=== PATIENT | female | born 1945 | race Caucasian/White ===

== ENCOUNTER 2024-01-17 11:14 | Emergency (ER) | payer MEDICARE ==
[2024-01-17 12:31] LABS: BASOPHILS PERCENT AUTO 0.2 % (0.1-1.3); EOSINOPHILS ABSOLUTE AUTO 0.03 K/uL (0.00-0.40); EOSINOPHILS PERCENT AUTO 0.6 % (0.0-5.4); HEMATOCRIT 31.6 % (34.3-46.0); HEMOGLOBIN 10.6 g/dL (11.2-15.5); IMMATURE GRAN PERCENT AUTO 0.2 % (0.0-0.7); LYMPHOCYTES PERCENT AUTO 9.5 % (11.4-47.7); MEAN CORPUSCULAR HEMOGLOBIN 35.9 pg (31.6-35.5); MEAN CORPUSCULAR HGB CONC 33.5 g/dL (31.6-35.5); MEAN CORPUSCULAR VOLUME 107.1 fL (81.4-99.0); MONOCYTES ABSOLUTE AUTO 0.36 K/uL (0.20-0.90); MONOCYTES PERCENT AUTO 6.9 % (3.3-12.6); NEUTROPHILS ABSOLUTE AUTO 4.33 K/uL (1.0-7.6); NEUTROPHILS PERCENT AUTO 82.6 % (40.0-78.1); PLATELET COUNT,PLT 160 K/uL (130-375); RED BLOOD CELL COUNT 2.95 M/uL (3.77-5.24); WHITE BLOOD CELL COUNT,WBC 5.2 K/uL (3.2-11.0)
[2024-01-17 12:32] LABS: BASOPHILS ABSOLUTE AUTO 0.01 K/uL (0.00-0.10); IMMATURE GRAN ABSOLUTE AUTO 0.01 K/uL (0.00-0.23)
[2024-01-17 12:51] LABS: A/G RATIO 0.7 (1.2-2.2); ALANINE AMINOTRANSFERASE,ALT 12 U/L (12-78); ALBUMIN 2.8 g/dL (3.4-5.0); ALKALINE PHOSPHATASE 100 U/L (46-116); ASPARTATE AMNIOTRANSFERASE,AST 15 U/L (15-37); BILIRUBIN TOTAL 0.4 mg/dL (0.2-1.0); BLOOD UREA NITROGEN,BUN 8 mg/dL (7-18); CALCIUM 8.4 mg/dL (8.5-10.1); CARBON DIOXIDE,CO2 30 mmol/L (21-32); CHLORIDE,CL 98 mmol/L (100-108); CREATININE 0.5 mg/dL (0.6-1.0); EST CRCL DRUG DOSING (CG) 63.37 mL/min; ESTIMATED GFR 95 mL/min (>60); GLUCOSE RANDOM 91 mg/dL (74-106); POTASSIUM,K 4.2 mmol/L (3.6-5.2); PROTEIN TOTAL,TP 6.8 g/dL (6.4-8.2); SODIUM,NA 134 mmol/L (140-148)
[2024-01-17 12:52] LABS: ANION GAP 10.2 mmol/L (5.0-14.0)
[2024-01-17 13:01] LABS: RETICULOCYTE COUNT PERCENT 1.5 % (0.53-2.48)
[2024-01-17 13:12] VITALS: BP 128/80; PULSE 66
[2024-01-17 13:33] LABS: BILIRUBIN,URINE NEGATIVE (NEGATIVE); COLOR,URINE YELLOW (YELLOW); GLUCOSE,URINE NEGATIVE (NEGATIVE); KETONES,URINE TRACE mg/dL (NEGATIVE); LEUKOCYTE ESTERASE,URINE SMALL (NEGATIVE); NITRITE,URINE NEGATIVE (NEGATIVE); OCCULT BLOOD,URINE SMALL (NEGATIVE); PH,URINE 6.5 (5.0-8.0); PROTEIN,URINE NEGATIVE (NEGATIVE)
[2024-01-17 13:39] LABS: AMORPHOUS SEDIMENT,URINE NOT SEEN; APPEARANCE,URINE SLIGHTLY CLOUDY (CLEAR); BACTERIA,URINE FEW; EPITHELIAL CELLS,URINE RARE; MUCUS,URINE NOT SEEN
== END 2024-01-17 14:36 | disposition home or self-care (01) ==
LOC: JP.ED 11:14
DX: D53.9 Nutritional anemia, unspecified (principal); J44.9 Chronic obstructive pulmonary disease, unspecified; F17.210 Nicotine dependence, cigarettes, uncomplicated; Z88.2 Allergy status to sulfonamides; Z88.1 Allergy status to other antibiotic agents; Z79.899 Other long term (current) drug therapy
CPT/HCPCS: 36415; 80053; 81001; 82272; 85025; 85045; 87086; 99284

== ENCOUNTER 2024-03-03 05:46 | Emergency (ER) | payer MEDICARE ==
[2024-03-03 06:41] LABS: BASOPHILS PERCENT AUTO 0.3 % (0.1-1.3); EOSINOPHILS ABSOLUTE AUTO 0.03 K/uL (0.00-0.40); EOSINOPHILS PERCENT AUTO 0.8 % (0.0-5.4); HEMATOCRIT 28.7 % (34.3-46.0); HEMOGLOBIN 9.8 g/dL (11.2-15.5); IMMATURE GRAN PERCENT AUTO 0.3 % (0.0-0.7); LYMPHOCYTES ABSOLUTE AUTO 0.52 K/uL (0.8-3.3); LYMPHOCYTES PERCENT AUTO 13.1 % (11.4-47.7); MEAN CORPUSCULAR HEMOGLOBIN 36.7 pg (31.6-35.5); MEAN CORPUSCULAR HGB CONC 34.1 g/dL (31.6-35.5); MEAN CORPUSCULAR VOLUME 107.5 fL (81.4-99.0); MONOCYTES ABSOLUTE AUTO 0.32 K/uL (0.20-0.90); MONOCYTES PERCENT AUTO 8.1 % (3.3-12.6); NEUTROPHILS ABSOLUTE AUTO 3.08 K/uL (1.0-7.6); NEUTROPHILS PERCENT AUTO 77.4 % (40.0-78.1); PLATELET COUNT,PLT 129 K/uL (130-375); RED BLOOD CELL COUNT 2.67 M/uL (3.77-5.24)
[2024-03-03 06:42] LABS: BASOPHILS ABSOLUTE AUTO 0.01 K/uL (0.00-0.10); IMMATURE GRAN ABSOLUTE AUTO 0.01 K/uL (0.00-0.23)
[2024-03-03 07:02] LABS: A/G RATIO 0.7 (1.2-2.2); ALANINE AMINOTRANSFERASE,ALT 8 U/L (12-78); ALBUMIN 2.8 g/dL (3.4-5.0); ALKALINE PHOSPHATASE 95 U/L (46-116); ASPARTATE AMNIOTRANSFERASE,AST 14 U/L (15-37); BILIRUBIN TOTAL 0.4 mg/dL (0.2-1.0); BLOOD UREA NITROGEN,BUN 6 mg/dL (7-18); C-REACTIVE PROTEIN 0.62 mg/dL (<0.50); CALCIUM 7.9 mg/dL (8.5-10.1); CARBON DIOXIDE,CO2 30 mmol/L (21-32); CHLORIDE,CL 98 mmol/L (100-108); CREATININE 0.5 mg/dL (0.6-1.0); ESTIMATED GFR 95 mL/min (>60); GLUCOSE RANDOM 105 mg/dL (74-106); POTASSIUM,K 4.2 mmol/L (3.6-5.2); PROTEIN TOTAL,TP 6.6 g/dL (6.4-8.2); SODIUM,NA 133 mmol/L (140-148)
[2024-03-03 07:03] LABS: ANION GAP 9.2 mmol/L (5.0-14.0)
[2024-03-03 07:07] LABS: LACTIC ACID 1.3 mmol/L (0.4-2.0)
[2024-03-03] MEDS: Sodium Chloride 0.9% 80 ML IV SCH (07:13)
[2024-03-03] MEDS: Iopamidol 612 MG/ML 100 ML Bottle IV ONE (07:13)
[2024-03-03] MEDS: Sodium Chloride 0.9% 1,000 ML IV SCH (08:51)
[2024-03-03] MEDS: Iopamidol 755 Mg/ML 100 ML Bottle IV SCH (09:12)
[2024-03-03] MEDS: Sodium Chloride 0.9% 100 ML IV SCH (09:12)
[2024-03-03 09:17] VITALS: BP 126/72; PULSE 71
[2024-03-03 10:04] LABS: FOLIC ACID 1.8 ng/ml (8.6-58.9)
[2024-03-03 10:29] LABS: APPEARANCE,URINE CLEAR (CLEAR); BILIRUBIN,URINE NEGATIVE (NEGATIVE); COLOR,URINE YELLOW (YELLOW); GLUCOSE,URINE NEGATIVE (NEGATIVE); KETONES,URINE NEGATIVE (NEGATIVE); LEUKOCYTE ESTERASE,URINE NEGATIVE (NEGATIVE); NITRITE,URINE NEGATIVE (NEGATIVE); OCCULT BLOOD,URINE NEGATIVE (NEGATIVE); PH,URINE 7.5 (5.0-8.0); PROTEIN,URINE NEGATIVE (NEGATIVE); UROBILINOGEN,URINE 0.2 EU/dL (0.2-1.0)
[2024-03-03 10:44] LABS: AMORPHOUS SEDIMENT,URINE NOT SEEN; BACTERIA,URINE RARE; EPITHELIAL CELLS,URINE RARE; MUCUS,URINE NOT SEEN; RBC,URINE NOT SEEN (0-5); WBC,URINE NOT SEEN (0-5)
== END 2024-03-03 11:30 | disposition home or self-care (01) ==
LOC: JP.ED 05:46
DX: K62.5 Hemorrhage of anus and rectum (principal); D53.9 Nutritional anemia, unspecified; D51.9 Vitamin B12 deficiency anemia, unspecified; D52.9 Folate deficiency anemia, unspecified; R41.0 Disorientation, unspecified; F17.210 Nicotine dependence, cigarettes, uncomplicated; Z88.2 Allergy status to sulfonamides; Z88.8 Allergy status to other drugs, medicaments and biological substances; Z79.899 Other long term (current) drug therapy
CPT/HCPCS: 36415; 71275; 74177; 80053; 81001; 82607; 82746; 83605; 83690; 85025; 86140; 96360; 96361; 99284; J7030; Q9967

== ENCOUNTER 2024-03-13 12:34 | Emergency (ER) | payer MEDICARE ==
[2024-03-13 13:04] VITALS: BP 110/56; PULSE 69
== END 2024-03-13 13:06 | disposition left against medical advice (07) ==
LOC: JP.ED 12:34
DX: Z53.21 Procedure and treatment not carried out due to patient leaving prior to being seen by health care provider (principal)

== ENCOUNTER 2024-03-14 10:19 | Inpatient (IN) | payer MEDICARE ==
[2024-03-14 11:21] LABS: BASE EXCESS ARTERIAL 4.9 mm/L; BICARBONATE,ARTERIAL 30.3 mmol/L (22.0-26.0); CARBOXYHEMOGLOBIN 1.3 % (0.0-1.6); METHEMOGLOBIN 1.3 %; O2 SATURATION ARTERIAL 95.7 % (95.0-98.0); OXYHEMOGLOBIN 93.2 %; PCO2 ARTERIAL 51.7 mmHg (35.0-42.0); PO2 ARTERIAL 81.5 mmHg (75.0-100.0); TOTAL HEMOGLOBIN 9.8 g/dL (12.0-16.0)
[2024-03-14] MEDS: Albuterol/Ipratropium 3.0-0.5 MG/3 ML Neb Soln NEB ONE (11:27)
[2024-03-14] MEDS: methylPREDNISolone Sodium Succinate 125 MG/2 ML SDV IVPUSH ONE (11:27)
[2024-03-14 11:31] LABS: EOSINOPHILS PERCENT AUTO 0.2 % (0.0-5.4); HEMATOCRIT 27.8 % (34.3-46.0); HEMOGLOBIN 9.5 g/dL (11.2-15.5); IMMATURE GRAN ABSOLUTE AUTO 0.04 K/uL (0.00-0.23); IMMATURE GRAN PERCENT AUTO 0.8 % (0.0-0.7); LYMPHOCYTES ABSOLUTE AUTO 0.36 K/uL (0.8-3.3); LYMPHOCYTES PERCENT AUTO 7.4 % (11.4-47.7); MEAN CORPUSCULAR HEMOGLOBIN 36.5 pg (31.6-35.5); MEAN CORPUSCULAR HGB CONC 34.2 g/dL (31.6-35.5); MEAN CORPUSCULAR VOLUME 106.9 fL (81.4-99.0); MONOCYTES ABSOLUTE AUTO 0.49 K/uL (0.20-0.90); MONOCYTES PERCENT AUTO 10.1 % (3.3-12.6); NEUTROPHILS ABSOLUTE AUTO 3.97 K/uL (1.0-7.6); NEUTROPHILS PERCENT AUTO 81.5 % (40.0-78.1); PLATELET COUNT,PLT 137 K/uL (130-375); WHITE BLOOD CELL COUNT,WBC 4.9 K/uL (3.2-11.0)
[2024-03-14 11:40] LABS: EOSINOPHILS ABSOLUTE AUTO 0.01 K/uL (0.00-0.40)
[2024-03-14 11:53] LABS: A/G RATIO 0.6 (1.2-2.2); ALANINE AMINOTRANSFERASE,ALT 12 U/L (12-78); ALBUMIN 2.4 g/dL (3.4-5.0); ALKALINE PHOSPHATASE 69 U/L (46-116); ANION GAP 7.2 mmol/L (5.0-14.0); ASPARTATE AMNIOTRANSFERASE,AST 34 U/L (15-37); BILIRUBIN TOTAL 0.4 mg/dL (0.2-1.0); BLOOD UREA NITROGEN,BUN 16 mg/dL (7-18); CALCIUM 7.7 mg/dL (8.5-10.1); CARBON DIOXIDE,CO2 33 mmol/L (21-32); CHLORIDE,CL 95 mmol/L (100-108); CREATININE 0.6 mg/dL (0.6-1.0); EST CRCL DRUG DOSING (CG) 41.91 mL/min; ESTIMATED GFR 91 mL/min (>60); GLUCOSE RANDOM 107 mg/dL (74-106); POTASSIUM,K 4.2 mmol/L (3.6-5.2); PROTEIN TOTAL,TP 6.4 g/dL (6.4-8.2); SODIUM,NA 131 mmol/L (140-148)
[2024-03-14] MEDS: Sodium Chloride 0.9% 500 ML IV ONE (12:56)
[2024-03-14] MEDS: Doxycycline 100 MG in Sodium Chloride 0.9% 100 ML IV ONE (12:56)
[2024-03-14] MEDS: Albuterol 0.083% 2.5 MG/3 ML Neb Soln NEB ONE (12:57)
[2024-03-14] MEDS ORDERED: Acetaminophen 325 MG Tab PO PRN (15:23)
[2024-03-14] MEDS ORDERED: Sodium Chloride 0.9% 10 ML Syringe FLUSH PRN (15:23)
[2024-03-14] MEDS ORDERED: Ondansetron 4 MG/2 ML SDV IV PRN (15:23)
[2024-03-14] MEDS ORDERED: Albuterol 0.083% 2.5 MG/3 ML Neb Soln NEB PRN (15:23)
[2024-03-14] MEDS: Enoxaparin 40 MG/0.4 ML Syringe SUBCUT SCH (16:19)
[2024-03-14] MEDS: Dexamethasone 4 MG/ML SDV IVPUSH SCH (16:19)
[2024-03-14] MEDS: cefTRIAXone 1 GM in Sodium Chloride 0.9% 50 ML IV SCH (16:20)
[2024-03-14] MEDS: Albuterol/Ipratropium 3.0-0.5 MG/3 ML Neb Soln NEB SCH (16:20)
[2024-03-14] MEDS ORDERED: Nicotine Polacrilex 2 MG Gum CHEW PRN (16:46)
[2024-03-14] MEDS: REMDESIVIR 200 MG in Sodium Chloride 0.9% 250 ML IV ONE (17:06)
[2024-03-14] MEDS: Nicotine 21 MG/24 Hr Patch TRDERM SCH (18:49)
[2024-03-14] MEDS: Melatonin 3 MG Tab PO SCH (20:41)
[2024-03-14] MEDS ORDERED: Albuterol 6.7 GM Inhaler INH PRN (20:59)
[2024-03-14] MEDS: Doxycycline 100 MG in Sodium Chloride 0.9% 100 ML IV SCH (23:11)
[2024-03-15 05:54] LABS: HEMATOCRIT 26.5 % (34.3-46.0); HEMOGLOBIN 9.1 g/dL (11.2-15.5); MEAN CORPUSCULAR HEMOGLOBIN 36.5 pg (31.6-35.5); MEAN CORPUSCULAR HGB CONC 34.3 g/dL (31.6-35.5); MEAN CORPUSCULAR VOLUME 106.4 fL (81.4-99.0); RED BLOOD CELL COUNT 2.49 M/uL (3.77-5.24); WHITE BLOOD CELL COUNT,WBC 2.8 K/uL (3.2-11.0)
[2024-03-15 06:15] LABS: A/G RATIO 0.6 (1.2-2.2); ALANINE AMINOTRANSFERASE,ALT 10 U/L (12-78); ALBUMIN 2.3 g/dL (3.4-5.0); ALKALINE PHOSPHATASE 66 U/L (46-116); ANION GAP 12.4 mmol/L (5.0-14.0); ASPARTATE AMNIOTRANSFERASE,AST 25 U/L (15-37); BILIRUBIN TOTAL 0.3 mg/dL (0.2-1.0); BLOOD UREA NITROGEN,BUN 22 mg/dL (7-18); CARBON DIOXIDE,CO2 29 mmol/L (21-32); CHLORIDE,CL 95 mmol/L (100-108); CREATININE 0.6 mg/dL (0.6-1.0); EST CRCL DRUG DOSING (CG) 45.25 mL/min; ESTIMATED GFR 91 mL/min (>60); GLUCOSE RANDOM 135 mg/dL (74-106); MAGNESIUM 1.8 mg/dL (1.8-2.4); POTASSIUM,K 4.4 mmol/L (3.6-5.2); PROTEIN TOTAL,TP 6.2 g/dL (6.4-8.2); SODIUM,NA 132 mmol/L (140-148)
[2024-03-15] MEDS: Haloperidol Lactate 5 MG/ML SDV IVPUSH PRN (15:07)
[2024-03-15] MEDS: Polyethylene Glycol 3350 Powder 17 GM Packet PO PRN (16:43)
[2024-03-15] MEDS: REMDESIVIR 100 MG in Sodium Chloride 0.9% 100 ML IV SCH (16:44)
[2024-03-17 06:11] LABS: HEMATOCRIT 28.9 % (34.3-46.0); HEMOGLOBIN 10.2 g/dL (11.2-15.5); MEAN CORPUSCULAR HEMOGLOBIN 36.4 pg (31.6-35.5); MEAN CORPUSCULAR HGB CONC 35.3 g/dL (31.6-35.5); MEAN CORPUSCULAR VOLUME 103.2 fL (81.4-99.0); RED BLOOD CELL COUNT 2.8 M/uL (3.77-5.24); WHITE BLOOD CELL COUNT,WBC 7.6 K/uL (3.2-11.0)
[2024-03-17 06:29] LABS: A/G RATIO 0.6 (1.2-2.2); ALANINE AMINOTRANSFERASE,ALT 12 U/L (12-78); ALBUMIN 2.2 g/dL (3.4-5.0); ALKALINE PHOSPHATASE 64 U/L (46-116); ASPARTATE AMNIOTRANSFERASE,AST 22 U/L (15-37); BILIRUBIN TOTAL 0.3 mg/dL (0.2-1.0); BLOOD UREA NITROGEN,BUN 20 mg/dL (7-18); CALCIUM 7.4 mg/dL (8.5-10.1); CARBON DIOXIDE,CO2 29 mmol/L (21-32); CHLORIDE,CL 96 mmol/L (100-108); CREATININE 0.5 mg/dL (0.6-1.0); EST CRCL DRUG DOSING (CG) 55.74 mL/min; ESTIMATED GFR 95 mL/min (>60); GLUCOSE RANDOM 76 mg/dL (74-106); POTASSIUM,K 3.8 mmol/L (3.6-5.2); PROTEIN TOTAL,TP 5.9 g/dL (6.4-8.2); SODIUM,NA 129 mmol/L (140-148)
[2024-03-17 06:33] LABS: ANION GAP 7.8 mmol/L (5.0-14.0)
[2024-03-17] MEDS: Dexamethasone 2 MG Tab PO SCH (09:43)
[2024-03-17] MEDS: Doxycycline 100 MG Cap PO SCH (09:43)
[2024-03-17] MEDS: Morphine 10 MG/0.5 ML Oral Syringe PO PRN (13:19)
[2024-03-17] MEDS: LORazepam ORAL Concentrate 1MG/0.5ML U/D SL PRN (18:07)
[2024-03-17] MEDS: Cefdinir 300 MG Cap PO SCH (21:50)
[2024-03-19 05:14] VITALS: BP 134/77; PULSE 82
== END 2024-03-19 10:45 | disposition home or self-care (01) | DRG 177 ==
LOC: JP.ED 10:19 → EEVIPCON 13:26 → JP.MS 13:26
PROVIDERS: ADMIT Hospitalist; ATTEND Internal Medicine
PROC: 4A033R1 Measurement of Arterial Saturation, Peripheral, Percutaneous Approach (ICD-10-PCS; principal; 2024-03-14)
PROC: XW033E5 Introduction of Remdesivir Anti-infective into Peripheral Vein, Percutaneous Approach, New Technology Group 5 (ICD-10-PCS; 2024-03-14)
PROC: 3E0333Z Introduction of Anti-inflammatory into Peripheral Vein, Percutaneous Approach (ICD-10-PCS; 2024-03-14)
DX: U07.1 COVID-19 (principal); J12.82 Pneumonia due to coronavirus disease 2019; J96.21 Acute and chronic respiratory failure with hypoxia; J96.22 Acute and chronic respiratory failure with hypercapnia; J15.9 Unspecified bacterial pneumonia; J18.9 Pneumonia, unspecified organism; J44.0 Chronic obstructive pulmonary disease with (acute) lower respiratory infection; F02.B11 Dementia in other diseases classified elsewhere, moderate, with agitation; J44.1 Chronic obstructive pulmonary disease with (acute) exacerbation; Z51.5 Encounter for palliative care; Z66 Do not resuscitate; H54.7 Unspecified visual loss; J96.02 Acute respiratory failure with hypercapnia; M06.9 Rheumatoid arthritis, unspecified; M81.0 Age-related osteoporosis without current pathological fracture; G30.1 Alzheimer's disease with late onset; J96.01 Acute respiratory failure with hypoxia; Z88.8 Allergy status to other drugs, medicaments and biological substances; E78.00 Pure hypercholesterolemia, unspecified; Z98.49 Cataract extraction status, unspecified eye; F17.210 Nicotine dependence, cigarettes, uncomplicated; Z79.899 Other long term (current) drug therapy; Z88.2 Allergy status to sulfonamides
CPT/HCPCS: 36415; 71045 ×2; 80053; 82803; 85025; 87428; 93005; 93010; 94640 ×2; 96365; 96375; 99285 ×2; J2919; J3490 ×2; J7040; 83735; 85027; 97110-GP; 97161-GP; 99223; 99233; 99239; A9270-GY; J0696; J1100; J1630; J1650; J7620; J8540